=== PATIENT | male | born 1935 | race Caucasian/White ===

== ENCOUNTER 2016-12-10 13:26 | Inpatient (IN) | payer OTHER ==
--- NOTE | 2016-12-10 18:10 | RAD ---
HISTORY: 81-year-old male with chest pain. Study: Single frontal view of the chest. Comparison: Chest radiograph July 06, 2016 Findings: Surgical and support devices are stable. The trachea is midline. The cardiac silhouette is enlarged and stable. No focal consolidation, eff usion or pneumothorax. The bony thorax is unremarkable. IMPRESSION: 1. No acute cardiopulmonary disease. Reported By:
[2016-12-10 18:25] LABS: BASOPHILS # (AUTO) 0.1 X10^3/uL (0.0-0.1); BASOPHILS % (AUTO) 0.8 % (0.2-1.0); EOSINOPHILS # (AUTO) 0.5 x10^3/uL (0.0-0.2); EOSINOPHILS % (AUTO) 7.1 % (0.9-2.9); HEMATOCRIT 34.7 % (42.0-54.0); HEMOGLOBIN 11.5 g/dL (13.5-18.0); LYMPHOCYTES # (AUTO) 0.8 X10^3/uL (1.3-2.9); LYMPHOCYTES % (AUTO) 12.5 % (21.0-51.0); MEAN CORPUSCULAR HEMOGLOBIN 31.2 pg (27.0-34.0); MEAN CORPUSCULAR HGB CONC 33.3 g/dL (33.0-35.0); MEAN CORPUSCULAR VOLUME 93.8 fL (80.0-100.0); MEAN PLATELET VOLUME 8.3 fL (7.4-11.0); MONOCYTES # (AUTO) 0.4 x10^3/uL (0.3-0.8); MONOCYTES % (AUTO) 6.5 % (0.0-13.0); NEUTROPHILS # (AUTO) 4.6 x10^3/uL (2.2-4.8); NEUTROPHILS % (AUTO) 73.1 % (42.0-75.0); PLATELET COUNT 183 X10^3/uL (150.0-450.0); RED CELL DISTRIBUTION WIDTH 20.2 % (11.6-16.5); WHITE BLOOD COUNT 6.3 X10^3/uL (3.6-10.0)
[2016-12-10 18:37] LABS: ALANINE AMINOTRANSFERASE 16 Units/L (12-78); ALBUMIN 3.9 g/dL (3.4-5.0); ALKALINE PHOSPHATASE 91 Units/L (46-116); ASPARTATE AMINO TRANSFERASE 12 Units/L (15-37); BLOOD UREA NITROGEN 20 mg/dL (7-18); CALCIUM 8.6 mg/dL (8.5-10.1); CARBON DIOXIDE 26.2 mmol/L (21-32); CHLORIDE 106 mmol/L (98-107); COR NA(FOR HYPERGLY) 139 mmol/L (136-145); CREATININE 2.14 mg/dL (0.70-1.30); GLUCOSE 126 mg/dL (65-99); MAGNESIUM 1.8 mg/dL (1.7-2.9); SODIUM 138 mmol/L (136-145); TOTAL PROTEIN 7.2 g/dL (6.4-8.2); eGFR BLACK RACES 38 (>60); eGFR NON BLACK RACES 32 (>60)
[2016-12-10 18:39] LABS: PLATELET MORPHOLOGY COMMENT NORMAL (NORMAL)
[2016-12-10 18:59] LABS: CKMB % 1.8 % (<4); CREATINE KINASE 66 Units/L (39-308); CREATINE KINASE MB 1.2 ng/mL (0-4.0); TROPONIN I < 0.02 ng/mL (0-1.5)
[2016-12-10] MEDS ORDERED: NITROSTAT SL PRN ×2 (21:32→23:07)
[2016-12-10] MEDS ORDERED: ZOLPIDEM TARTRATE PO PRN (23:07)
[2016-12-10] MEDS ORDERED: PATIENT'S HOME MEDICATION (Lorazepam [Lorazepam] 1 TAB) PO PRN (23:07)
[2016-12-10] MEDS ORDERED: ULTRAM PO PRN (23:07)
[2016-12-10] MEDS ORDERED: NORCO 7.5/325 MG TAB PO PRN (23:07)
[2016-12-10] MEDS ORDERED: PATIENT'S HOME MEDICATION (Gabapentin [Gabapentin] 1 TAB) PO PRN (23:07)
[2016-12-10] MEDS ORDERED: HEPARIN SODIUM IN D5W 25,000 UNITS/500 ML BAG IV PRN (23:10)
[2016-12-10 23:36] VITALS: BMI 22.0
[2016-12-11] MEDS ORDERED: AMBIEN PO PRN (00:06)
[2016-12-11] MEDS ORDERED: ATIVAN TAB 0.5 MG PO PRN (00:06)
[2016-12-11] MEDS ORDERED: HEPARIN SODIUM INJ 5000 UNITS IVP ONE ×2 (00:07→07:53)
[2016-12-11 01:43] LABS: CKMB % 1.7 % (<4); CREATINE KINASE 65 Units/L (39-308); CREATINE KINASE MB 1.1 ng/mL (0-4.0); TROPONIN I < 0.02 ng/mL (0-1.5)
[2016-12-11 04:37] LABS: BILIRUBIN,URINE NEGATIVE (NEGATIVE); BLOOD/HEMOGLOBIN,URINE NEGATIVE (NEGATIVE); GLUCOSE, URINE NEGATIVE (NEGATIVE); KETONES,URINE NEGATIVE (NEGATIVE); LEUKOCYTE ESTERASE ,URINE NEGATIVE (NEGATIVE); NITRITES,URINE NEGATIVE (NEGATIVE); PROTEIN,URINE NEGATIVE (NEGATIVE); UROBILINOGEN,URINE 3+ (NORMAL)
[2016-12-11 04:51] LABS: APPEARANCE,URINE CLEAR (CLEAR); BACTERIA,URINE NEGATIVE /HPF (NEGATIVE); COLOR,URINE YELLOW (YELLOW); RBC,URINE 0-3 /HPF (NEGATIVE); SQUAMOUS EPITHELIAL CELL,UR RARE /HPF (NEGATIVE)
[2016-12-11 06:29] LABS: CHOL/HDL RATIO 3.7 (0.0-5.0)
[2016-12-11 06:51] LABS: CKMB % 1.8 % (<4); CREATINE KINASE 57 Units/L (39-308); CREATINE KINASE MB < 1.0 ng/mL (0-4.0); TROPONIN I < 0.02 ng/mL (0-1.5)
--- NOTE | 2016-12-11 08:50 | DR.H&P ---
H&P - History & Physical for Day of: H&P Date: 12/11/16 - Chief Complaint Chief Complaint: Weakness, Fatigue, Chest discomfort - Allergies Allergies/Adverse Reactions: Allergies Allergy/AdvReac Type Severity Reaction Status Date / Time meperidine [From Demerol] Allergy Verified 12/10/16 18:02 morphine Allergy Verified 12/10/16 18:02 - History of Present Illness History of Present Illness: The patient is an 81-year-old white male who has a long-standing history of coronary artery disease. The patient has had bypass with 5 grafts as well as 26 stents. The patient's most recent heart catheterization was 1 month ago with 1 stent placed. Patient has subsequently been readmitted secondary to chest pain. Today the patient has been having increasing fatigue tiredness with mild chest discomfort. - Past Medical History Past Medical History: Anxiety, Arthritis, CHF, Coronary Artery Disease, Diabetes , Dyslipidemia, GERD, Hypertension, HI Additional Medical History: BPH - Past Surgical History Surgical History: Angioplasty/Stents, Tonsillectomy Additional Surgical History: AICD placement - Family History Family Medical History: Diabetes Mellitus, HI, Sudden Cardiac - Social History Does patient currently use any type of tobacco product: No Have you used tobacco products in the last 12 months: No Type of Tobacco Use: None Does any household member use tobacco: No Alcohol Use: None Drug Use: None - Medications Home Medications: Cetirizine HCl [Zyrtec] 1 cap PO DAILY 12/10/16 [History Confirmed 12/10/16] Gabapentin 1 cap PO DAILY 12/10/16 [History Confirmed 12/10/16] Gabapentin 1 tab PO HS PRN 12/10/16 [History Confirmed 12/10/16] Hydrocodone/Acetaminophen [Hydrocodon-Acetaminoph 7.5-325] 1 tab PO Q6HR PRN [History Confirmed 12/10/16] Nitroglycerin 1 tab SL PRN PRN MDD 3 12/10/16 [History Confirmed 12/10/16] Omeprazole 1 cap PO DAILY 12/10/16 [History Confirmed 12/10/16] Ranolazine [RANEXA 500 MG *] 1 tab PO BID 12/10/16 [History Confirmed 12/10/16] Tamsulosin HCl [FLOMAX (GENERIC) 0.4 MG *] 1 cap PO DAILY 12/10/16 [History Confirmed 12/10/16] Tramadol HCl 1 tab PO QID PRN 12/10/16 [History Confirmed 12/10/16] - Review of Systems Constitutional: Weakness Eyes: No Symptoms Reported ENT: No Symptoms Reported Respiratory: No Symptoms Reported Cardiovascular: Chest Pain Gastrointestinal: No Symptoms Reported Genitourinary: No Symptoms Reported Musculoskeletal: No Symptoms Reported Skin: No Symptoms Reported Neurological: Weakness - Physical Exam Vital Signs: Temperature 97.6 F Pulse Rate [Left Brachial] 94 Respiratory Rate 14 Blood Pressure [Left Arm] 122/83 Blood Pressure [Right Arm] 119/64 Blood Pressure 123/70 O2 Sat by Pulse Oximetry 100 Oriented: Normal Eyes: Normal Ear: Normal Nose: Normal Throat: Normal Respiratory: Clear Throughout Cardiovascular: Normal : Normal Auscultation: Bowel Sounds: Normal Palpation: Normal Tenderness: Normal Skin: Normal Musculoskeletal: Normal Psychiatric: Normal Mood Description: Calm Affect: Normal Speech Pattern: Clear - Assessment/Plan (1) CAD (coronary artery disease) Qualifiers: Coronary Disease-Associated Artery/Lesion type: C [place] vs. transplanted heart: N Associated angina: A Status: Acute Plan: cardiac enzymes, heparin drip (2) Chest pain due to myocardial ischemia Qualifiers: Ischemic chest pain type: I Status: Acute Plan: cardiac enzymes, heparin, EKGs (3) Diabetes mellitus type II, controlled Qualifiers: Diabetes mellitus complication status: D Diabetes mellitus complication detail: D Diabetic retinopathy severity: D Proliferative retinopathy type: P Diabetes mellitus macular edema: D Diabetes mellitus [facility] insulin use : D Laterality: L Chronic kidney disease stage: C Status: Acute Plan: monitor blood sugar with sliding scale insulin (4) HTN (hypertension) Qualifiers: Hypertension type: H Status: Acute Plan: monitor for hypotension (5) Hyperlipidemia associated with type 2 diabetes mellitus Status: Acute Plan: monitor lipid panel, adm anti-lipids.
[2016-12-11] MEDS ORDERED: PLAVIX PO SCH (09:00)
[2016-12-11] MEDS ORDERED: RANEXA PO SCH (09:00)
[2016-12-11] MEDS ORDERED: LASIX PO SCH (09:00)
[2016-12-11] MEDS ORDERED: PATIENT'S HOME MEDICATION (Omeprazole [Omeprazole] 1 CAP) PO SCH (09:00)
[2016-12-11] MEDS ORDERED: ASPIRIN EC 81 MG PO SCH (09:00)
[2016-12-11] MEDS ORDERED: NEURONTIN CAP 400 MG PO SCH ×2 (09:00→21:00)
[2016-12-11] MEDS ORDERED: FUROSEMIDE PO SCH (09:00)
[2016-12-11] MEDS ORDERED: PriLOSEC PO SCH (09:00)
[2016-12-11] MEDS ORDERED: PATIENT'S HOME MEDICATION (Spironolactone [Spironolactone] 1 TAB) PO SCH (09:00)
[2016-12-11] MEDS ORDERED: ALDACTONE TAB 25 MG PO SCH (09:00)
[2016-12-11] MEDS ORDERED: PATIENT'S HOME MEDICATION (Clopidogrel Bisulfate [Clopidogrel] 1 TAB) PO SCH (09:00)
[2016-12-11] MEDS ORDERED: FLOMAX PO SCH (09:00)
[2016-12-11 09:15] LABS: ALANINE AMINOTRANSFERASE 14 Units/L (12-78); ALBUMIN 3.4 g/dL (3.4-5.0); ALKALINE PHOSPHATASE 84 Units/L (46-116); ASPARTATE AMINO TRANSFERASE 12 Units/L (15-37); BLOOD UREA NITROGEN 19 mg/dL (7-18); CALCIUM 8.4 mg/dL (8.5-10.1); CARBON DIOXIDE 24.6 mmol/L (21-32); CHLORIDE 104 mmol/L (98-107); COR NA(FOR HYPERGLY) 139 mmol/L (136-145); CREATININE 1.85 mg/dL (0.70-1.30); GLUCOSE 128 mg/dL (65-99); SODIUM 138 mmol/L (136-145); TOTAL PROTEIN 6.5 g/dL (6.4-8.2); eGFR BLACK RACES 45 (>60); eGFR NON BLACK RACES 37 (>60)
[2016-12-11 09:16] LABS: BASOPHILS # (AUTO) 0.1 X10^3/uL (0.0-0.1); BASOPHILS % (AUTO) 0.9 % (0.2-1.0); EOSINOPHILS # (AUTO) 0.3 x10^3/uL (0.0-0.2); EOSINOPHILS % (AUTO) 5.2 % (0.9-2.9); HEMATOCRIT 33.2 % (42.0-54.0); HEMOGLOBIN 11.2 g/dL (13.5-18.0); LYMPHOCYTES # (AUTO) 0.7 X10^3/uL (1.3-2.9); LYMPHOCYTES % (AUTO) 10.9 % (21.0-51.0); MEAN CORPUSCULAR HEMOGLOBIN 31.5 pg (27.0-34.0); MEAN CORPUSCULAR HGB CONC 33.7 g/dL (33.0-35.0); MEAN CORPUSCULAR VOLUME 93.6 fL (80.0-100.0); MEAN PLATELET VOLUME 8.6 fL (7.4-11.0); MONOCYTES # (AUTO) 0.4 x10^3/uL (0.3-0.8); MONOCYTES % (AUTO) 6.2 % (0.0-13.0); NEUTROPHILS # (AUTO) 4.8 x10^3/uL (2.2-4.8); NEUTROPHILS % (AUTO) 76.8 % (42.0-75.0); PLATELET COUNT 164 X10^3/uL (150.0-450.0); RED BLOOD COUNT 3.55 X10^6/uL (4.7-6.0); RED CELL DISTRIBUTION WIDTH 19.8 % (11.6-16.5); WHITE BLOOD COUNT 6.3 X10^3/uL (3.6-10.0)
[2016-12-11] MEDS: ZOFRAN INJ 4 MG VIAL IVP PRN ×2 (09:48→12:24)
[2016-12-11 12:21] VITALS: BP 119/81
--- NOTE | 2016-12-11 15:37 | PCM.DCPLAN ---
Discharge Summary - Admission Date Date of Admission: 12/10/16 - Discharge Date Discharge Date: 12/11/16 - Admission Diagnoses (1) CAD (coronary artery disease) Status: Acute (2) Chest pain due to myocardial ischemia Status: Acute (3) Chest pain with high risk for cardiac etiology Status: Acute (4) Diabetes mellitus type II, controlled Status: Acute (5) HTN (hypertension) Status: Acute (6) Hyperlipidemia associated with type 2 diabetes mellitus Status: Acute (7) Weakness Status: Acute - Discharge Diagnoses Discharge Diagnosis: SAME ADMISSION - Discharge Medications Discharge Medications: Cetirizine HCl [Zyrtec] 1 cap PO DAILY 12/10/16 [History] Gabapentin 1 cap PO DAILY 12/10/16 [History] Gabapentin 1 tab PO HS PRN 12/10/16 [History] Hydrocodone/Acetaminophen [Hydrocodon-Acetaminoph 7.5-325] 1 tab PO Q6HR PRN [History] Nitroglycerin 1 tab SL PRN PRN MDD 3 12/10/16 [History] Omeprazole 1 cap PO DAILY 12/10/16 [History] Ranolazine [RANEXA 500 MG *] 1 tab PO BID 12/10/16 [History] Tamsulosin HCl [FLOMAX (GENERIC) 0.4 MG *] 1 cap PO DAILY 12/10/16 [History] Tramadol HCl 1 tab PO QID PRN 12/10/16 [History] - Hospital Course Vital Signs: Temperature 97.4 F Pulse Rate [Left Brachial] 94 Respiratory Rate 16 Blood Pressure [Left Arm] 119/81 Blood Pressure [Right Arm] 119/64 Blood Pressure 123/70 O2 Sat by Pulse Oximetry 99 Latest Lab Results: Laboratory Last Values WBC 6.3 X10^3/uL (3.6-10.0) 12/11/16 08:51 RBC 3.55 X10^6/uL (4.7-6.0) L 12/11/16 08:51 Hgb 11.2 g/dL (13.5-18.0) L 12/11/16 08:51 Hct 33.2 % (42.0-54.0) L 12/11/16 08:51 MCV 93.6 fL (80.0-100.0) 12/11/16 08:51 MCH 31.5 pg (27.0-34.0) 12/11/16 08:51 MCHC 33.7 g/dL (33.0-35.0) 12/11/16 08:51 RDW 19.8 % (11.6-16.5) H 12/11/16 08:51 Plt Count 164 X10^3/uL (150.0-450.0) 12/11/16 08:51 Plt Count Comment Increased (ADEQUATE) 12/10/16 18:07 MPV 8.6 fL (7.4-11.0) 12/11/16 08:51 Neut % 76.8 % (42.0-75.0) H 12/11/16 08:51 Lymph % 10.9 % (21.0-51.0) L 12/11/16 08:51 [place] % 6.2 % (0.0-13.0) 12/11/16 08:51 Eos % 5.2 % (0.9-2.9) H 12/11/16 08:51 Baso % 0.9 % (0.2-1.0) 12/11/16 08:51 Neut # 4.8 x10^3/uL (2.2-4.8) 12/11/16 08:51 Lymph # 0.7 X10^3/uL (1.3-2.9) L 12/11/16 08:51 [place] # 0.4 x10^3/uL (0.3-0.8) 12/11/16 08:51 Eos # 0.3 x10^3/uL (0.0-0.2) H 12/11/16 08:51 Baso # 0.1 X10^3/uL (0.0-0.1) 12/11/16 08:51 Absolute Nucleated RBC 0.1 /100WBC 12/11/16 08:51 Plt Morphology Comment Normal (NORMAL) 12/10/16 18:07 RBC Morphology Normal (NORMAL) 12/10/16 18:07 INR Target Range - 12/10/16 18:07 INR 1.15 (0.8-1.3) 12/10/16 18:07 PTT 40.7 SECONDS (22.9-36.5) H 12/11/16 06:46 PTT Comment - 12/11/16 06:46 Sodium 138 mmol/L (136-145) 12/11/16 08:51 Corrected Sodium 139 mmol/L (136-145) 12/11/16 08:51 Potassium 4.8 mmol/L (3.5-5.1) 12/11/16 08:51 Chloride 104 mmol/L (98-107) 12/11/16 08:51 Carbon Dioxide 24.6 mmol/L (21-32) 12/11/16 08:51 BUN 19 mg/dL (7-18) H 12/11/16 08:51 Creatinine 1.85 mg/dL (0.70-1.30) H 12/11/16 08:51 Est GFR (MDRD) Af Amer 45 (>60) L 12/11/16 08:51 Est GFR (MDRD) Non-Af 37 (>60) L 12/11/16 08:51 Glucose 128 mg/dL (65-99) H 12/11/16 08:51 Calcium 8.4 mg/dL (8.5-10.1) L 12/11/16 08:51 Corrected Calcium TNP 12/11/16 08:51 Magnesium 1.8 mg/dL (1.7-2.9) 12/10/16 18:07 Total Bilirubin 0.90 mg/dL (0.2-1.0) 12/11/16 08:51 AST 12 Units/L (15-37) L 12/11/16 08:51 ALT 14 Units/L (12-78) 12/11/16 08:51 Alkaline Phosphatase 84 Units/L (46-116) 12/11/16 08:51 Creatine Kinase 57 Units/L (39-308) 12/11/16 05:24 CK-MB (CK-2) < 1.0 ng/mL (0-4.0) 12/11/16 05:24 CK/CKMB % Calc 1.8 % (<4) 12/11/16 05:24 Troponin I < 0.02 ng/mL (0-1.5) 12/11/16 05:24 Total Protein 6.5 g/dL (6.4-8.2) 12/11/16 08:51 Albumin 3.4 g/dL (3.4-5.0) 12/11/16 08:51 Globulin 3.1 g/dL (2.5-4.5) 12/11/16 08:51 Albumin/Globulin Ratio 1.1 Ratio (1.1-2.1) 12/11/16 08:51 Triglycerides 61 mg/dL (0-150) 12/11/16 05:24 Cholesterol 92 mg/dL (0-200) 12/11/16 05:24 LDL Cholesterol, Calc 55 mg/dL (0-100) 12/11/16 05:24 HDL Cholesterol 25 mg/dL (40-60) L 12/11/16 05:24 Cholesterol/HDL Ratio 3.7 (0.0-5.0) 12/11/16 05:24 Specimen Type Clean catch urine 12/11/16 04:23 Urine Color Yellow (YELLOW) 12/11/16 04:23 Urine Appearance Clear (CLEAR) 12/11/16 04:23 Urine pH 6.0 (5.0 - 8.0) 12/11/16 04:23 Ur Specific [place] 1.010 (1.000-1.030) 12/11/16 04:23 Urine Protein Negative (NEGATIVE) 12/11/16 04:23 Urine Glucose (UA) Negative (NEGATIVE) 12/11/16 04:23 Urine Ketones Negative (NEGATIVE) 12/11/16 04:23 Urine Occult Blood Negative (NEGATIVE) 12/11/16 04:23 Urine Nitrite Negative (NEGATIVE) 12/11/16 04:23 Urine Bilirubin Negative (NEGATIVE) 12/11/16 04:23 Urine Urobilinogen 3+ (NORMAL) 12/11/16 04:23 Ur Leukocyte Esterase Negative (NEGATIVE) 12/11/16 04:23 Urine RBC 0-3 /HPF (NEGATIVE) 12/11/16 04:23 Urine WBC 0-3 /HPF (NEGATIVE) 12/11/16 04:23 Ur Squamous Epith Cells Rare /HPF (NEGATIVE) 12/11/16 04:23 Urine Bacteria Negative /HPF (NEGATIVE) 12/11/16 04:23 Ur Culture Indicated? No/not indicated 12/11/16 04:23 Hospital Course: Patient is a 81-year-old white male who was a direct admit from Dr. Broderick's Trev's office with complaints of chest pain. Patient has a long-standing history of coronary artery disease with bypass in 1994 as well as 26 stents since initial CABG. Patient's last catheterization was approximately 1 month ago with 1 stent. Patient complains of increased fatigue and mild chest discomfort. Patient was admitted for further evaluation of chest pain. Patient had chest x-ray on admission which was stable for any acute cardiopulmonary findings. Patient's serial cardiac enzymes and EKGs were stable. Patient has a past medical history of diabetes dyslipidemia and GERD hypertension acute [place] BPH anxiety and arthritis. Patient has been accepted to [facility] by Dr. GREGORY Go we plan to transfer this a.m. By EMS Patient's condition on discharge stable. - Discharge Plan Disposition: XFER OTHER Condition: Stable - Follow ups/Referrals Follow ups/Referrals: SIMON BRODERICK [Primary Care Provider] - - Instructions
[2016-12-11] MEDS ORDERED: PRAVACHOL PO SCH (21:00)
[2016-12-11] MEDS ORDERED: PATIENT'S HOME MEDICATION (Pravastatin Sodium [Pravastatin Sodium] 1 TAB) PO SCH (21:00)
== END 2016-12-11 12:15 | disposition short-term general hospital (02) | DRG 311 ==
LOC: ICU 13:26
PROVIDERS: ADMIT Internal Medicine; ATTEND Internal Medicine
DX: I20.8 Other forms of angina pectoris (principal); I25.10 Atherosclerotic heart disease of native coronary artery without angina pectoris; E11.65 Type 2 diabetes mellitus with hyperglycemia; R53.1 Weakness; I10 Essential (primary) hypertension; E78.2 Mixed hyperlipidemia; R79.1 Abnormal coagulation profile; R11.0 Nausea
CPT/HCPCS: 36415; 71010; 80053; 80061; 81001; 82550; 82553; 83735; 84484; 85025; 85610; 85730; 93005; 93010; A4222; J1644; J2405